=== PATIENT | female | born 2000 | race Caucasian/White ===

== ENCOUNTER 2022-09-01 12:32 | Observation (INO) ==
--- NOTE | 2022-09-01 12:54 | Emergency Department Note ---
Impression & Plan Symptomatic anemia, Vaginal bleeding, Incomplete ED Provider Note NAME: ROCHELLE ANGUIANO AGE: 21 SEX: F : 2000 ARRIVES VIA: Walk-In INFORMANT: Patient ED PROVIDER(S): Gabriel Prather DO CHIEF COMPLAINT: abdominal pain HPI: Patient is a 19-year-old female who presents to the ER for heavy vaginal bleeding. She notes that this has been going on since this past Sunday when she started getting cramping with the start of her typical period. She notes normally they last about 7 days and has been decreasing significantly. She is going through a pad every 2-3 hours when it started and it was much heavier than usual. She does feel little lightheaded and dizzy. No headache or change in vision. No chest pain or shortness of breath. No nausea, vomiting, or diarrhea. No dysuria, urgency, or frequency. No other exacerbating or remitting factors. PAST MEDICAL HISTORY:See Below PAST SURGICAL HISTORY:See Below FAMILY HISTORY:See Below SOCIAL HISTORY:See Below HOME MEDICATIONS:See Below ALLERGIES:See Below VITALS:See Below PHYSICAL EXAMINATION: GENERAL: Sitting up in bed, alert, well appearing, well nourished, no distress, non-toxic EYE EXAM: normal conjunctiva. PERRL and EOM's grossly intact. OROPHARYNX: no exudate, no erythema, lips, buccal mucosa, and tongue normal and mucous membranes are moist NECK: supple, no nuchal rigidity, no adenopathy, non-tender LUNGS: Clear to auscultation. Normal chest wall mechanics HEART: no murmurs, S1 normal and S2 normal ABDOMEN: abdomen soft, non-tender, normo-active bowel sounds, no masses, no rebound or guarding. UPPER EXTREMITIES: upper extremities are grossly normal. LOWER EXTREMITIES: No pitting edema. NEURO EXAM: Normal sensorium, cranial nerves II-XII grossly intact, normal speech, no gross weakness of arms, no gross weakness of legs. MEDICAL DECISION MAKING: Patient is a 19-year-old female who presents ER for vaginal bleeding. IV was established blood work was obtained. She was found to be fairly tachycardic. Labs show no significant leukocytosis but a significant anemia at 5.4. BMP with mild hypokalemia 3.2. LFTs bilirubin was unremarkable. hCG was 16,000. She was . Ultrasound did not visualize the fetus but did show a fair amount of retained products. Consulted TELEPHONE CLEANER and they evaluated her at bedside. I did order for 2 units of PRBCs. Patient was consented. Patient was updated at bedside. Discussed with OPEN CLAIMS REPRESENTATIVE and patient was admitted to Dr. Cj Vizcarra service for further treatment management and evaluation. Patient was given 2 L of IV fluids while here. Triage Nursing notes reviewed. Limited review of prior medical records performed Vital Signs: reviewed and remarkable for no significant abnormalities Differential diagnosis: Differential diagnoses includes but is not limited to appendicitis, diverticulitis, small bowel obstruction, malignancy, hernia, urinary tract infection, torsion, and ectopic (if female), perforation, trauma, infectious. ER treatment provided: See below Diagnostics interpreted by me include EKG and cardiac monitoring as listed below: -Cardiac Monitoring: An order was placed for continuous cardiac monitoring. The monitor shows a rate of 105 with sinus rhythm. -ECG: none -Laboratory studies:Interpreted by me as stated above in MDM and shown below. Imaging studies: Xrays: As interpreted by me:none CTs show: none Ultrasound shows fair amount of likely blood within the cervix Consultation(s): Patient was seen and evaluated by TELEPHONE CLEANER and admitted to their service Procedures:none Critical Care: I have personally spent 31 minutes of critical care time in the direct management of this patient. This includes bedside care, interpretation of diagnostic studies, and testing, discussion with consultants, patient, and fa lars members, and other required patient management activities. This 31 minutes is in excess of all separately billable procedures. Past Med/Surg History Medical History No pertinent past medical history Surgical History No pertinent past surgical history Family History Other No pertinent family history in first degree relatives Social History Smoking Status: Never smoker Preferred Language: Irish Feels Safe at Home: Yes Allergies Allergies Allergy/AdvReac Type Severity Reaction Status Date / Time No Known Allergies Allergy Unverified 03/28/19 17:32 Home Meds Home Medications Medication Instructions Recorded Confirmed calcium carbonate 200 mg calcium 400 mg PO BID PRN gi symptoms 03/28/19 03/28/19 (500 mg) chewable tablet (Tums) Results & Data (ED) Vital Signs Vital Signs - 24 hr 09/01/22 12:33 09/01/22 13:20 09/01/22 13:27 Temperature Temperature Source Pulse Rate 132 H 101 H Pulse Rate from SpO2 Sensor Pulse Rhythm Respiratory Rate 15 Blood Pressure 115/75 Blood Pressure Mean 88 Blood Pressure Position Pulse Oximetry 100 98 Oxygen Delivery Method Room Air Oxygen Flow Rate 0 Sepsis Recent Fever Within 48 Hours No Sepsis New/Unexplained Change in Mental Status No Sepsis Action Taken by Nursing No Action Required 09/01/22 13:26 09/01/22 13:30 09/01/22 14:00 Temperature Temperature Source Pulse Rate 105 H 102 H 98 H Pulse Rate from SpO2 Sensor 105 H 101 H 98 H Pulse Rhythm Respiratory Rate 15 19 14 Blood Pressure Blood Pressure Mean Blood Pressure Position Pulse Oximetry 100 100 100 Oxygen Delivery Method Oxygen Flow Rate Sepsis Recent Fever Within 48 Hours Sepsis New/Unexplained Change in Mental Status Sepsis Action Taken by Nursing 09/01/22 14:53 09/01/22 15:00 09/01/22 15:30 Temperature Temperature Source Pulse Rate 105 H 108 H Pulse Rate from SpO2 Sensor 108 H 109 H Pulse Rhythm Respiratory Rate 15 17 17 Blood Pressure Blood Pressure Mean Blood Pressure Position Pulse Oximetry 100 100 Oxygen Delivery Method Oxygen Flow Rate Sepsis Recent Fever Within 48 Hours Sepsis New/Unexplained Change in Mental Status Sepsis Action Taken by Nursing 09/01/22 16:00 09/01/22 16:06 09/01/22 16:06 Temperature Temperature Source Pulse Rate 106 H 104 H Pulse Rate from SpO2 Sensor 108 H 111 H Pulse Rhythm Respiratory Rate 23 32 H Blood Pressure 101/58 L Blood Pressure Mean 72 Blood Pressure Position Pulse Oximetry 100 97 Oxygen Delivery Method Oxygen Flow Rate Sepsis Recent Fever Within 48 Hours Sepsis New/Unexplained Change in Mental Status Sepsis Action Taken by Nursing 09/01/22 16:57 09/01/22 17:13 09/01/22 16:30 Temperature 37.0 C 36.9 C Temperature Source Oral Oral Pulse Rate 108 H 109 H Pulse Rate from SpO2 Sensor Pulse Rhythm Regular Respiratory Rate 20 14 Blood Pressure 105/66 98/56 L 107/61 Blood Pressure Mean 79 70 76 Blood Pressure Position Lying Lying Pulse Oximetry 100 100 Oxygen Delivery Method Oxygen Flow Rate Sepsis Recent Fever Within 48 Hours Sepsis New/Unexplained Change in Mental Status Sepsis Action Taken by Nursing 09/01/22 16:30 09/01/22 16:44 09/01/22 16:44 Temperature Temperature Source Pulse Rate 107 H 111 H Pulse Rate from SpO2 Sensor 110 H 103 H Pulse Rhythm Respiratory Rate 22 24 Blood Pressure 105/66 Blood Pressure Mean 79 Blood Pressure Position Pulse Oximetry 100 99 Oxygen Delivery Method Oxygen Flow Rate Sepsis Recent Fever Within 48 Hours Sepsis New/Unexplained Change in Mental Status Sepsis Action Taken by Nursing 09/01/22 17:00 09/01/22 17:00 09/01/22 17:15 Temperature Temperature Source Pulse Rate 109 H 113 H Pulse Rate from SpO2 Sensor 110 H 111 H Pulse Rhythm Respiratory Rate 23 19 Blood Pressure 119/69 Blood Pressure Mean 85 Blood Pressure Position Pulse Oximetry 100 98 Oxygen Delivery Method Oxygen Flow Rate Sepsis Recent Fever Within 48 Hours Sepsis New/Unexplained Change in Mental Status Sepsis Action Taken by Nursing 09/01/22 17:15 09/01/22 17:30 09/01/22 17:30 Temperature Temperature Source Pulse Rate 105 H Pulse Rate from SpO2 Sensor 105 H Pulse Rhythm Respiratory Rate 13 Blood Pressure 98/56 L 100/61 Blood Pressure Mean 70 74 Blood Pressure Position Pulse Oximetry 100 Oxygen Delivery Method Oxygen Flow Rate Sepsis Recent Fever Within 48 Hours Sepsis New/Unexplained Change in Mental Status Sepsis Action Taken by Nursing Laboratory Data 09/01/22 13:09 09/01/22 13:09 Lab Results 09/01/22 09/01/22 09/01/22 Range/Units 13:09 13:09 13:09 WBC 6.56 (4.8-10.8) K/ul RBC 1.92 L (4.20-5.40) M/uL Hgb 5.4 L* (12.0-16.0) g/dl Hct 16.3 L* (37.0-47.0) % MCV 84.9 (80.0-100.0) fL MCH 28.1 (25.0-34.0) pg MCHC 33.1 (32.0-36.0) g/dL RDW Std Deviation 40.5 (36.4-46.3) fL RDW Coeff of Micah 13.3 (11.5-14.5) % Plt Count 243 (130-400) K/uL MPV 10.7 (9.4-12.4) fL Immature Gran % (Auto) 0.6 % Neut % (Auto) 63.5 % Lymph % (Auto) 28.2 % Nicholas % (Auto) 6.6 % Eos % (Auto) 0.8 % Baso % (Auto) 0.3 % Neut # (Auto) 4.17 (1.40-6.50) K/uL Lymph # (Auto) 1.85 (1.2-3.4) K/uL Nicholas # (Auto) 0.43 (0.11-0.59) K/uL Eos # (Auto) 0.05 (0-0.50) K/uL Baso # (Auto) 0.02 (0-0.2) K/uL Immature Gran # (Auto) 0.04 (0.01-0.20) K/uL Polychromasia 1+ Sodium 136 (136-145) mmol/L Potassium 3.1 L (3.5-5.1) mmol/L Chloride 105 (98-107) mmol/L Carbon Dioxide 23 (21-32) mmol/L Anion Gap 8 (3-11) BUN 11 (6-23) mg/dl Creatinine 0.64 (0.6-1.2) mg/dl Est Cr Clr Drug Dosing Not Reportable Est GFR ( Amer) 146.8 ml/min Est GFR (Non-Af Amer) 126.7 ml/min BUN/Creatinine Ratio 17.2 (10-20) Glucose 102 H (70-99(Fasting)) mg/dl Calcium 8.7 (8.5-10.1) mg/dl Total Bilirubin 0.2 (0.2-1.0) mg/dl AST 23 (13-39) U/L ALT 28 (7-52) U/L Alkaline Phosphatase 38 (34-104) U/L Total Protein 6.0 (6.0-8.3) gm/dl Albumin 4.1 (3.4-5.0) gm/dl Globulin 1.9 L (2.5-4.0) gm/dl Albumin/Globulin Ratio 2.2 H (0.9-2) HCG, Quant 81861 mIU/ml POC Ur Test (NEG) SARS-CoV-2, RNA, NAAT (NEGATIVE) Blood Type Blood Type Recheck Antibody Screen Crossmatch 02/09/01/22 09/01/22 Range/Units 13:20 14:22 14:24 WBC (4.8-10.8) K/ul RBC (4.20-5.40) M/uL Hgb (12.0-16.0) g/dl Hct (37.0-47.0) % MCV (80.0-100.0) fL MCH (25.0-34.0) pg MCHC (32.0-36.0) g/dL RDW Std Deviation (36.4-46.3) fL RDW Coeff of Micah (11.5-14.5) % Plt Count (130-400) K/uL MPV (9.4-12.4) fL Immature Gran % (Auto) % Neut % (Auto) % Lymph % (Auto) % Nicholas % (Auto) % Eos % (Auto) % Baso % (Auto) % Neut # (Auto) (1.40-6.50) K/uL Lymph # (Auto) (1.2-3.4) K/uL Nicholas # (Auto) (0.11-0.59) K/uL Eos # (Auto) (0-0.50) K/uL Baso # (Auto) (0-0.2) K/uL Immature Gran # (Auto) (0.01-0.20) K/uL Polychromasia Sodium (136-145) mmol/L Potassium (3.5-5.1) mmol/L Chloride (98-107) mmol/L Carbon Dioxide (21-32) mmol/L Anion Gap (3-11) BUN (6-23) mg/dl Creatinine (0.6-1.2) mg/dl Est Cr Clr Drug Dosing Est GFR ( Amer) ml/min Est GFR (Non-Af Amer) ml/min BUN/Creatinine Ratio (10-20) Glucose (70-99(Fasting)) mg/dl Calcium (8.5-10.1) mg/dl Total Bilirubin (0.2-1.0) mg/dl AST (13-39) U/L ALT (7-52) U/L Alkaline Phosphatase (34-104) U/L Total Protein (6.0-8.3) gm/dl Albumin (3.4-5.0) gm/dl Globulin (2.5-4.0) gm/dl Albumin/Globulin Ratio (0.9-2) HCG, Quant mIU/ml POC Ur Test POS (NEG) SARS-CoV-2, RNA, NAAT (NEGATIVE) Blood Type A Positive Blood Type Recheck A Positive Antibody Screen NEGATIVE Crossmatch See Detail 09/01/22 Range/Units 16:09 WBC (4.8-10.8) K/ul RBC (4.20-5.40) M/uL Hgb (12.0-16.0) g/dl Hct (37.0-47.0) % MCV (80.0-100.0) fL MCH (25.0-34.0) pg MCHC (32.0-36.0) g/dL RDW Std Deviation (36.4-46.3) fL RDW Coeff of Micah (11.5-14.5) % Plt Count (130-400) K/uL MPV (9.4-12.4) fL Immature Gran % (Auto) % Neut % (Auto) % Lymph % (Auto) % Nicholas % (Auto) % Eos % (Auto) % Baso % (Auto) % Neut # (Auto) (1.40-6.50) K/uL Lymph # (Auto) (1.2-3.4) K/uL Nicholas # (Auto) (0.11-0.59) K/uL Eos # (Auto) (0-0.50) K/uL Baso # (Auto) (0-0.2) K/uL Immature Gran # (Auto) (0.01-0.20) K/uL Polychromasia Sodium (136-145) mmol/L Potassium (3.5-5.1) mmol/L Chloride (98-107) mmol/L Carbon Dioxide (21-32) mmol/L Anion Gap (3-11) BUN (6-23) mg/dl Creatinine (0.6-1.2) mg/dl Est Cr Clr Drug Dosing Est GFR ( Amer) ml/min Est GFR (Non-Af Amer) ml/min BUN/Creatinine Ratio (10-20) Glucose (70-99(Fasting)) mg/dl Calcium (8.5-10.1) mg/dl Total Bilirubin (0.2-1.0) mg/dl AST (13-39) U/L ALT (7-52) U/L Alkaline Phosphatase (34-104) U/L Total Protein (6.0-8.3) gm/dl Albumin (3.4-5.0) gm/dl Globulin (2.5-4.0) gm/dl Albumin/Globulin Ratio (0.9-2) HCG, Quant mIU/ml POC Ur Test (NEG) SARS-CoV-2, RNA, NAAT NEGATIVE (NEGATIVE) Blood Type Blood Type Recheck Antibody Screen Crossmatch Administered Medications Discontinued Medications Sodium Chloride (Nss 1000ml) 2,000 mls @ 999 mls/hr IV .Q2H1M [place] Stop: 09/01/22 15:00 Last Infusion: 09/01/22 17:00 Dose: 0 mls/hr Documented By: Admin: 09/01/22 13:27 Dose: 999 mls/hr Documented By: AM Imaging Data Radiologist's Impression: Transvaginal US 09/01/22 00:00 US OB <= 14 weeks fetus CLINICAL HISTORY: Vaginal bleeding. . COMPARISON STUDY: No previous studies for comparison. TECHNIQUE: Transabdominal and transvaginal sonography of the pelvis was performed. FINDINGS: Uterus measures 6.2 x 3.6 x 4 cm. Endometrium measures 4 mm in thickness. No intrauterine gestational sac is identified. Complex material within the endometrial/cervical cavity is noted. This may reflect blood prod ucts. There is no adnexal mass. No free fluid. A 2.4 cm suspected left ovarian corpus luteal cyst is present. The left ovary measures 2.4 x 2.1 x 2 cm and the right ovary measures 2.4 x 1.3 x 2.1 cm. There is color flow within each ovary. IMPRESSION: 1. No intrauterine gestational sac identified. Complex material within the endometrial/cervical cavity may reflect blood products. This may represent a spontaneous . However, an early intrauterine gestation cannot be excluded. Sonographically occult ectopic is also considered less likely but within the differential. Clinical follow-up, including serial beta hCG levels is recommended. 2. 2.4 cm left ovarian corpus luteal cyst. ACT 112: Negative or not required by law. Electronically signed by: Rivas Martinez M.D. 09/01/2022 3:07 PM Ultrasound 09/01/22 13:15 US OB <= 14 weeks fetus CLINICAL HISTORY: Vaginal bleeding. . COMPARISON STUDY: No previous studies for comparison. TECHNIQUE: Transabdominal and transvaginal sonography of the pelvis was performed. FINDINGS: Uterus measures 6.2 x 3.6 x 4 cm. Endometrium measures 4 mm in thickne ss. No intrauterine gestational sac is identified. Complex material within the endometrial/cervical cavity is noted. This may reflect blood products. There is no adnexal mass. No free fluid. A 2.4 cm suspected left ovarian corpus luteal cyst is present. The left ovary measures 2.4 x 2.1 x 2 cm and the right ovary measures 2.4 x 1.3 x 2.1 cm. There is color flow within each ovary. IMPRESSION: 1. No intrauterine gestational sac identified. Complex material within the endometrial/cervical cavity may reflect blood products. This may represent a spontaneous . However, an early intrauterine gestation cannot be excluded. Sonographically occult ectopic is also considered less likely but within the differential. Clinical follow-up, including serial beta hCG levels is recommended. 2. 2.4 cm left ovarian corpus luteal cyst. ACT 112: Negative or not required by law. Electronically signed by: Rivas Martinez M.D. 09/01/2022 3:07 PM Discharge Plan Visit Data Chief Complaint: Vaginal Bleeding Stated Complaint: HEAVY PERIOD, WEAKNESS, HIGH BPM ED Provider: Gabriel Prather Discharge Problem: Symptomatic anemia, Vaginal bleeding, Incomplete Forms Stand Alone Forms: [facility] [employer] Prescriptions Prescriptions: No Action calcium carbonate [Tums] 200 mg calcium (500 mg) Tablet,Chewable 400 mg PO BID PRN (Reason: gi symptoms) Referrals Referrals: [facility] [Primary Care Provider] -
[2022-09-01] MEDS ORDERED: SODIUM CHLORIDE 0.9% 1000ML 2,000 ML IV SCH (13:00)
[2022-09-01 14:09] LABS: Alanine Aminotransferase 28 U/L (7-52); Albumin Globulin Ratio 2.2 (0.9-2); Albumin Level 4.1 gm/dl (3.4-5.0); Alkaline Phosphatase 38 U/L (34-104); Anion Gap 8 (3-11); Aspartate Aminotransferase 23 U/L (13-39); BUN Creatinine Ratio 17.2 (10-20); Bilirubin,Total 0.2 mg/dl (0.2-1.0); Blood Urea Nitrogen 11 mg/dl (6-23); Calcium 8.7 mg/dl (8.5-10.1); Carbon Dioxide 23 mmol/L (21-32); Chloride 105 mmol/L (98-107); Est GFR (African American) 146.8 ml/min; Est GFR (Non-African American) 126.7 ml/min; Globulin 1.9 gm/dl (2.5-4.0); Glucose 102 mg/dl (70-99(Fasting)); Potassium 3.1 mmol/L (3.5-5.1); Sodium 136 mmol/L (136-145)
[2022-09-01] MEDS ORDERED: SODIUM CHLORIDE 0.9% 250 ML IV PRN (14:10)
[2022-09-01 14:11] LABS: Hematocrit (blood only) 16.3 % (37.0-47.0); Hemoglobin 5.4 g/dl (12.0-16.0); Mean Corpuscular Hemoglobin 28.1 pg (25.0-34.0); Mean Corpuscular Hgb Conc 33.1 g/dL (32.0-36.0); Mean Corpuscular Volume 84.9 fL (80.0-100.0); Mean Platelet Volume 10.7 fL (9.4-12.4); Platelet Count 243 K/uL (130-400); RDW Coefficient of Variation 13.3 % (11.5-14.5); RDW Standard Deviation 40.5 fL (36.4-46.3); Red Blood Count 1.92 M/uL (4.20-5.40); White Blood Count 6.56 K/ul (4.8-10.8)
[2022-09-01 14:26] LABS: Basophils # (auto) 0.02 K/uL (0-0.2); Basophils % (auto) 0.3 %; Eosinophils # (auto) 0.05 K/uL (0-0.50); Eosinophils % (auto) 0.8 %; Immature Granulocytes # (auto) 0.04 K/uL (0.01-0.20); Immature Granulocytes % (auto) 0.6 %; Lymphocytes # (auto) 1.85 K/uL (1.2-3.4); Lymphocytes % (auto) 28.2 %; Monocytes # (auto) 0.43 K/uL (0.11-0.59); Monocytes % (auto) 6.6 %; Neutrophils # (auto) 4.17 K/uL (1.40-6.50); Neutrophils % (auto) 63.5 %; Polychromasia 1+
--- NOTE | 2022-09-01 15:09 | Ultrasound Report ---
US OB <= 14 weeks fetus CLINICAL HISTORY: Vaginal bleeding. . COMPARISON STUDY: No previous studies for comparison. TECHNIQUE: Transabdominal and transvaginal sonography of the pelvis was performed. FINDINGS: Uterus measures 6.2 x 3.6 x 4 cm. Endometrium measures 4 mm in thickness. No intrauterine g estational sac is identified. Complex material within the endometrial/cervical cavity is noted. This may reflect blood products. There is no adnexal mass. No free fluid. A 2.4 cm suspected left ovarian corpus luteal cyst is present. The left ovary measures 2.4 x 2.1 x 2 cm and the right ovary measures 2.4 x 1.3 x 2.1 cm. There is color flow within each ovary. IMPRESSION: 1. No intrauterine gestational sac identified. Complex material within the endometrial/cervical cavit y may reflect blood products. This may represent a spontaneous . However, an early intrauteri ne gestation cannot be excluded. Sonographically occult ectopic is also considered less lik oren but within the differential. Clinical follow-up, including serial beta hCG levels is recommended. 2. 2.4 cm left ovarian corpus luteal cyst. ACT 112: Negative or not required by law. Electronically signed by: Rivas Martinez M.D. 09/01/2022 3:07 PM
[2022-09-01] MEDS ORDERED: LACTATED RINGER'S 1,000 ML IV SCH (17:45)
--- NOTE | 2022-09-01 18:13 | History and Physical Report ---
HISTORY OF PRESENT ILLNESS: The patient is a 21-year-old presented to the Emergency Room today with heavy vaginal bleeding. Her workup included a test, which was positive, showed hCG of over 16,000. The patient has been bleeding since last week. Today, in the Emergency Room, upon workup, hemoglobin was found to be 5.4. The patient complained of fatigue. No shortness of breath. The pat ient was therefore transfused in the ER with 2 units of blood. An ultrasound done showed no intraute rine gestational sac, complex material within the endometrial cervical cavity, possibly reflecting sp ontaneous . PAST MEDICAL HISTORY: No history of diabetes, hypertension, or asthma. PAST SURGICAL HISTORY: None. SOCIAL HISTORY: The patient denies tobacco, drug or alcohol use. FAMILY HISTORY: Noncontributory. PHYSICAL EXAMINATION: GENERAL: Well-developed, well-nourished white female in no acute distress. The patient appears pale . VITAL SIGNS: In the ER, blood pressure 100/61, pulse is 105, respirations 13, temperature 36.9. Hem oglobin is 5.4, hematocrit is 16.3. HEART: S1 and S2, regular rhythm and rate. LUNGS: Clear to auscultation bilaterally. ABDOMEN: Nontender, nondistended. PELVIC: The patient has tissue at cervical os, which was removed and sent to pathology for pathologi carson analysis. Otherwise, there is no bleeding in the vaginal vault. EXTREMITIES: No cyanosis, clubb ing or edema. ASSESSMENT AND PLAN: Incomplete , the patient has heavy bleeding. Her hemoglobin in the ER t yenny is 5.4/16.3. Plan is to admit the patient for observation. She has been given 2 units of packe d RBC cells. Bleeding presently is under control. She has no active vaginal bleeding. Job ID: [id number]
[2022-09-01] MEDS ORDERED: IBUPROFEN 800 MG TAB PO STA (18:56)
[2022-09-01] MEDS ORDERED: IBUPROFEN 600 MG TAB PO PRN (21:51)
[2022-09-01] MEDS ORDERED: ONDANSETRON INJ 2 MG/ML 2 ML VIAL IV PRN (21:52)
[2022-09-02 08:16] LABS: Hematocrit (blood only) 20.4 % (37.0-47.0)
--- NOTE | 2022-09-02 10:19 | Gynecologic Progress Note ---
Date of Service September 02, 2022 Assessment & Plan (1) Incomplete : Plan: Pt doing well Improved clinically after 2 units PRBC H/H 02/01.4 d/c home with iron and F/u appt Admission and Anticipated Discharge Date Admission Date: September 01, 2022 Results & Data ([facility]) Vital Signs (Past 12 Hours) Vital Signs Temp Pulse Resp BP Pulse Ox O2 Del Method 09/01/22 23:11 Room Air 09/01/22 23:11 36.7 C 97 H 18 96/56 L 98 09/01/22 22:45 36.6 C 103 H 16 104/53 L 99
--- NOTE | 2022-09-02 10:59 | Discharge Summary (DS) ---
DATE OF ADMISSION: 09/01/2022. DATE OF DISCHARGE: 09/02/2022. CHIEF COMPLAINT: Incomplete AB. HISTORY OF PRESENT ILLNESS: This is a 21-year-old who was admitted through the ER with incomplete ab ortion. She had severe acute anemia. On arrival to the ER, her hemoglobin was 5.4. She received 2 units of packed RBC. Ultrasound showed incomplete AB. In the ER, pelvic exam showed tissue within t he cervical os, which was removed. She was stable, but looked pale and after two units, she clinical ly improved. She was admitted and observed overnight. This morning, she is much improved. Her whitney ls were stable and she had some back. She is able to ambulate, tolerate p.o. food and medicati ons and has been discharged home in stable condition. PAST MEDICAL HISTORY: No history of diabetes, hypertension, or asthma. PAST SURGICAL HISTORY: None. SOCIAL HISTORY: The patient is a student. Denies tobacco, drug or alcohol use. FAMILY HISTORY: Noncontributory. ALLERGIES: No known drug allergies. REVIEW OF SYSTEMS: Negative except as dictated in the HPI. PHYSICAL EXAMINATION: VITAL SIGNS: Blood pressure is 103/59, pulse is 103, respirations 16, temperature 36.4. HEART: S1 and S2, regular rhythm and rate. LUNGS: Clear to auscultation bilaterally. ABDOMEN: Nontender, nondistended. EXTREMITIES: No cyanosis, clubbing or edema. LABORATORY DATA: H and H this morning showed hemoglobin of 7.0, hematocrit of 20.4. CONDITION ON DISCHARGE: Stable. OPERATIONS: Observation, incomplete AB and acute anemia. DISCHARGE DIAGNOSIS: Post-incomplete AB and acute anemia. PLAN ON DISCHARGE: The patient is discharged home with instructions regarding activity, diet, and fo [facility] appointment. The patient is a student at [employer] and was told to follow up with the [facility] where her hCG titers will be monitored and where we will further discuss contraception to pre vent this from happening again. Job ID: [id number]
[2022-09-02 11:15] LABS: Albumin Globulin Ratio 1.7 (0.9-2); Albumin Level 3.3 gm/dl (3.4-5.0); BUN Creatinine Ratio 15.9 (10-20); Bilirubin,Total 0.3 mg/dl (0.2-1.0); Calcium 8.2 mg/dl (8.5-10.1); Creatinine Clr Calc Pharmacy 139.4 ml/min; Est GFR (African American) 147.6 ml/min; Est GFR (Non-African American) 127.3 ml/min; Globulin 1.9 gm/dl (2.5-4.0); Potassium 3.4 mmol/L (3.5-5.1); Total Protein 5.2 gm/dl (6.0-8.3)
== END 2022-09-02 11:00 | disposition home or self-care (01) ==
LOC: ED 12:32 → INTOOBSV 18:40 → 4E1 18:40